=== PATIENT | female | born 1945 | race Caucasian/White ===

== ENCOUNTER 2016-12-31 00:42 | Emergency (ER) | payer OTHER, BC ==
[~2016-12-31] VITALS: Ht 160 cm; Wt 79.0 kg
[~2016-12-31 00:42] MED LIST: ASCA500 PO; ASPCH81; B COMPLEX; BNC20 PO; CENTTAB41; CINSULIN; CLB200 PO; CLTP PO; ESCI1TAB10 PO; EYE MED; METHSCOPOLAMINE; MURO; NXM/40 PO; OMEG10007 PO; PRED0.12; SODI5OIN4; ZFRODT4 SL
[2016-12-31 00:52] VITALS: TEMP 37.2; Ht 160 cm; Wt 79.0 kg
[2016-12-31] MEDS ORDERED: HYDROmorphone INJ 2 MG/ML SYR/VIAL IV STA (01:15)
[2016-12-31] MEDS ORDERED: KETOROLAC TROMETHAMINE 30 MG/ML VIAL IV STA (01:15)
[2016-12-31] MEDS ORDERED: LPT10 PO (01:23)
[2016-12-31] MEDS ORDERED: PROP80TA2 PO (01:24)
--- NOTE | 2016-12-31 01:24 | EMERGENCY ROOM VISIT NOTE ---
History Report prepared by Tameka: Feliciano Bedolla Under the Supervision of: Dr. Hayley Newby D.O. First contact with patient: 01:03 Chief Complaint: LEG PAIN,LEG INJURY Stated Complaint: PAIN AND SPASMS IN BUTTOCK AND LEG History of Present Illness The patient is a 71 year old female who presents to the Emergency Room with complaints of worsening left buttocks pain for the past two days. The pain radiates down her left leg and is described as an aching sensation. The patient notices increased pain when laying down and when she stands up from a sitting position. The patient has been having trouble sleeping secondary to pain. The patient had a fall two weeks ago where she landed on her buttocks, however she did not have this pain at that time. The patient denies upper back pain, abdominal pain, or incontinence of bowel or bladder. The patient denies any history of sciatica. She does have a history of arthritis. She has never required regular pain medication. Source of History: patient Onset: two days Position: buttock (left) Quality: ache Timing: worsening Modifying Factors (Worsening): other (laying down and standing from sitting position) Associated Symptoms: No abdominal pain, No back pain, No urinary symptoms Review of Systems See HPI for pertinent positives & negatives. A total of 10 systems reviewed and were otherwise negative. Past Medical & Surgical Medical Problems: (1) HTN (hypertension) Surgical Problems: (1) H/O tubal ligation Family History Cancer Gallbladder disease Social History Smoking Status: Never Smoker Marital Status: Housing Status: lives with significant other Occupation Status: retired Current/Historical Medications Scheduled Atorvastatin (Atorvastatin Calcium), 10 MG PO DAILY Celecoxib (CeleBREX), 200 MG PO DAILY Escitalopram Oxalate (Lexapro), 20 MG PO DAILY Esomeprazole Magnesium (Esomeprazole Magnesium), 40 MG PO DAILY Losartan Potassium (Cozaar), 25 MG PO DAILY Propranolol (Inderal), 80 MG PO QAM Scheduled PRN Oxycodone/Acetaminophen 5MG/325MG (Percocet 5MG/325MG), 1 TABLET PO Q4H PRN for Pain Allergies Coded Allergies: No Known Allergies (Unverified , 12/31/16) Physical Exam Vital Signs Date Time Temp Pulse Resp B/P Pulse Ox O2 Delivery O2 Flow Rate FiO2 12/31/16 02:55 67 17 127/71 94 12/31/16 00:52 37.2 83 19 139/76 91 Room Air Physical Exam Heart: Regular rate and rhythm. There is a normal S1 and S2 with no murmurs, clicks, or gallops appreciated. Lungs: Clear to auscultation bilaterally with no wheezes, rales, or rhonchi. Back: Exquisite tenderness over the left PSIS and left piriformis muscle. Abdomen: Soft, completely nontender, nondistended, with good bowel sounds. There are no palpable pulsatile masses or hepatosplenomegaly. There is no guarding, rigidity, or rebound noted. Extremities: No evidence of cyanosis, clubbing, or edema. There are easily palpable peripheral pulses. Skin: warm and dry with good turgor and no rashes. Medical Decision & Procedures Medications Administered Medications (Trade) Dose Ordered Sig/Sameer Route Start Time Stop Time Status Last Admin Dose Admin Ketorolac Tromethamine (Toradol Inj) 30 mg NOW STAT IV 12/31/16 01:15 12/31/16 01:17 DC 12/31/16 01:30 30 MG Hydromorphone HCl (Dilaudid Inj) 2 mg NOW STAT IV 12/31/16 01:15 12/31/16 01:17 DC 12/31/16 01:29 2 MG Ondansetron HCl (Zofran Inj) 4 mg NOW STAT IV 12/31/16 01:39 12/31/16 01:40 DC 12/31/16 01:42 4 MG Procedure Medications administered include Dilaudid IV, Toradol IV, Zofran IV. ED Course 0107: Past medical records reviewed. The patient was evaluated in room B3b. A complete history and physical exam was performed. IV lock was established. 0115: Dilaudid 2 mg IV, Toradol 30 mg IV. 0138: The patient is feeling nauseous. She will get Zofran. 0139: Zofran 4 mg IV. 0204: The patient is currently symptom-free. I discussed the findings with her. She verbalized understanding and agreement of the treatment plan. The patient is ready for discharge. 0222: The [place] Prescription Drug Monitoring Program was reviewed for this patient. No issues were found. Medical Decision The patient is a 71 year old female who presents to the ED with buttocks pain. Differential diagnosis includes sciatica, lumbar disc herniation, sacroiliac disease. The patient has easily reproducible left buttocks and left posterior leg pain with palpation over the left piriformis muscle and at the left PSIS. The patient may have initially caused a problem when she fell on her buttocks on the steps 2 weeks ago. I have given the patient prescription for Percocet to use for more severe pains that she is able to sleep. Otherwise, the patient can use NSAIDs and have close follow-up with her PCP if the pain persists. If symptoms worsen, she was directed to return here to the ER. She denies any lower extremity weakness or loss of control of the bowels or bladder. [facility] Drug Monitoring Program Search Results: patient reviewed within database, no issues identified Impression Primary Impression: Sciatica of left side Scribe Attestation The scribe's documentation has been prepared under my direction and personally reviewed by me in its entirety. I confirm that the note above accurately reflects all work, treatment, procedures, and medical decision making performed by me. Departure Information Dispostion Home / Self-Care Prescriptions Oxycodone/Acetaminophen 5MG/325MG (PERCOCET 5MG/325MG) Tab 1 TABLET PO Q4H Y for Pain, #20 TAB Prov: Hayley Newby D.O. 12/31/16 Referrals AlejandroMegan HEIDI (PCP) Forms HOME CARE DOCUMENTATION FORM, IMPORTANT VISIT INFORMATION, SPECIAL NARCOTICS INSTRUCTIONS Patient Instructions ED Sciatica, [facility] Additional Instructions Rest. Ibuprofen - 600mg every 6 hours with food for pain Percocet - 1 tab. every 4 hours for more severe pain Follow up with PCP if pain persists
[2016-12-31] MEDS ORDERED: CLB/200 PO (01:26)
[2016-12-31] MEDS ORDERED: LOSA1TAB PO (01:27)
[2016-12-31] MEDS ORDERED: ESOM1CAP34 PO (01:29)
[2016-12-31] MEDS ORDERED: ONDANSETRON INJ 2 MG/ML 2 ML VIAL IV STA (01:39)
[2016-12-31] MEDS ORDERED: OXYC-57 PO (02:27)
[2016-12-31 02:55] VITALS: BP 127/71; PULSE 67; O2SAT 94
== END 2016-12-31 02:42 | disposition home or self-care (01) ==
LOC: C.EDB 00:43
DX: M54.32 Sciatica, left side (principal); Z91.81 History of falling; I10 Essential (primary) hypertension; Z80.9 Family history of malignant neoplasm, unspecified; Z83.79 Family history of other diseases of the digestive system; Z79.899 Other long term (current) drug therapy